=== PATIENT | male | born 1950 | race Hispanic/Latino ===

== ENCOUNTER → 2017-07-14 | Outpatient (CLI) | payer SELFPAY | END | disposition home or self-care (01) | LOC: YCFC.O 08:11 | PROVIDERS: ATTEND Nurse Practitioner Family | DX: N40.0 Benign prostatic hyperplasia without lower urinary tract symptoms (principal); I10 Essential (primary) hypertension ==

== ENCOUNTER → 2018-10-27 | Outpatient (CLI) | payer MEDICARE ==
--- NOTE | 2018-10-27 14:43 | RAD ---
EXAM DESCRIPTION: Chest,2 Views CLINICAL HISTORY: R09.02 COMPARISON: Previous chest x-ray October 19, 2012 TECHNIQUE: PA/lateral FINDINGS: Heart is large with centrally increased pulmonary vascularity. Crowded lung markings in the bases due to incomplete inspiration. Previous study showed patchy infiltrate in the lingula which appears to have improved. No new consolidation to suggest pneumonia. Pleural or extrapleural thickening is prominent on the right, also unchanged. No pneumothorax. Lateral view shows intact sternum and T-spine. IMPRESSION: Large heart without congestive failure. Electronically signed by: Nacho Manuel MD 10/27/2018 2:42 PM [facility]
== END ==
LOC: LAB.O 13:42
PROVIDERS: ATTEND Nurse Practitioner Family
DX: I11.0 Hypertensive heart disease with heart failure (principal); N40.0 Benign prostatic hyperplasia without lower urinary tract symptoms; R09.02 Hypoxemia; Z13.220 Encounter for screening for lipoid disorders

== ENCOUNTER → 2018-11-01 | Outpatient (CLI) | payer MEDICARE ==
--- NOTE | 2018-11-01 16:23 | US ---
EXAM DESCRIPTION: Carotid Duplex: ULTRASOUND. CLINICAL HISTORY: 68 years Male DIZZINESS AND GIDDINESS COMPARISON: None. TECHNIQUE: Transcutaneous scanning utilizing jones-scale and Doppler modes to evaluate the bilateral carotid systems and vertebral arteries. Percentage of diameter of stenosis or no stenosis recorded will be based upon NASCET criteria. FINDINGS: Peak systolic/end diastolic (CM-Sec) CCA Right 78/10 Left 79/19. ICA Right proximal 33/11, mid 110/38. Left proximal 62/24, mid 61/26. Vertebral Right 38/16 Left 37/14. ECA (PS Only) Right 57 left 69. ICA/CCA peak systolic ratio: Right 1.4 Left 0.8 ICA/CCA end diastolic ratio: Right 3.7, 1.3 Left n/a Vertebral arteries: antegrade flow. Comments Comments: Significantly elevated right diastolic ratio but not consistent with other Doppler measurements. Minimal plaque seen bilaterally. IMPRESSION: 1. Doppler evaluation of the bilateral carotid systems and vertebral arteries shows mild degree of stenosis in the right carotid system except for elevated diastolic ratio. Grayscale survey shows no significant stenoses. 2. No significant amount of plaque seen in the carotid arteries bilaterally. Bilateral vertebral arteries showed antegrade-cephalad flow. Electronically signed by: Jared Salazar MD 11/01/2018 4:22 PM [employer]
== END ==
LOC: US 14:34
PROVIDERS: ATTEND Nurse Practitioner Family
DX: R42 Dizziness and giddiness (principal); I65.21 Occlusion and stenosis of right carotid artery

== ENCOUNTER → 2018-12-09 | Outpatient (CLI) | payer MEDICARE | LOC: LAB.O 14:22 | PROVIDERS: ATTEND Nurse Practitioner Family | DX: R73.09 Other abnormal glucose (principal) ==

== ENCOUNTER 2019-04-19 17:17 | Emergency (ER) | payer MEDICARE ==
--- NOTE | 2019-04-19 19:05 | RAD ---
EXAM: XR Left Forearm, 2 Views CLINICAL HISTORY: 69 years old and is Male; FB in arm TECHNIQUE: Frontal and lateral views of the left forearm. COMPARISON: No relevant prior studies available. FINDINGS: Limitations: None. Bones/joints: Small olecranon spur noted. No acute fracture. No dislocation. Soft tissues: Mild dorsal soft tissue swelling. No radiopaque foreign body noted. IMPRESSION: There is soft tissue swelling without acute bony abnormality. No radiopaque foreign body noted. Electronically signed by: Karely Richter MD 04/19/2019 7:02 PM CDT
--- NOTE | 2019-04-19 19:17 | ED.PDOC ---
History of Present Illness - General Chief Complaint: General Stated Complaint: piece of wood under skin Time Seen by Provider: 04/19/19 19:14 Source: patient Exam Limitations: no limitations - History of Present Illness Initial Comments: Lizzette Vines 69 y/o male stated that he was picking wood on his backyard then accidentally come in contact with rough part of wood felt something got underneath the skin of his left forearm. Timing/Duration: just prior to arrival Severity: moderate Location: extremities - left forearm Improving Factors: nothing Worsening Factors: movement Associated Symptoms: other - see hpi Allergies/Adverse Reactions: Allergies NO KNOWN ALLERGY Allergy (Verified 10/19/12 08:36) Home Medications: Ambulatory Orders Amlodipine Besylate [Norvasc] 10 mg PO DAILY 04/19/19 Lisinopril & Hydrochlorothiazi [Lisinopril/Hctz 20-12.5 mg] 1 tab PO DAILY 04/19/19 Review of Systems - Review of Systems Skin: States: see HPI, other - SQ FB All other Systems: Reviewed and Negative, No Change from Baseline Past Medical History (General) - Patient Medical History Hx Stroke: No Hx Cardiac Disorders: No Hx Congestive Heart Failure: No Hx Pacemaker: No Hx Hypertension: Yes Hx Diabetes: No Hx MRSA: No - unknown Surgical History: no surgical history - Vaccination History Hx Tetanus, Diphtheria Vaccination: - unknown Hx Influenza Vaccination: No Hx Pneumococcal Vaccination: No - Social History Hx Tobacco Use: No Hx Alcohol Use: No Hx Substance Use: No Hx Physical Abuse: No Hx Emotional Abuse: No Family Medical History - Family History Father Family History: Unknown Living Status: Unknown Physical Exam - Physical Exam General Appearance: Alert, Comfortable Eyes, Ears, Nose, Throat Exam: normal ENT inspection Neck: supple, normal inspection Cardiovascular/Chest: normal peripheral pulses, regular rate, rhythm, no murmur Respiratory: normal breath sounds Gastrointestinal/Abdominal: non tender, soft, hernia - umbilical reducible Back Exam: normal inspection Extremity: no pedal edema Neurologic: no motor/sensory deficits, alert, oriented x 3 Skin Exam: warm/dry, normal color Skin Problem Location: upper extremities - left forearm Skin Character: other - FB SQ Progress - Progress Progress: 04/19/19 19:19 Vital Signs - 8 hr 04/19/19 18:23 Temperature 98.4 F Pulse Rate [ 70 Right Brachial] Respiratory 20 Rate Blood Pressure 161/103 [Right Arm] O2 Sat by Pulse 93 L Oximetry 04/19/19 19:48 foreign body shown to patient after removal of wood splinter left forearm Procedures - Foreign Body Removal Foreign Body Removal: splinter - wood-left forearm cleanse w/Hibiclens Lidocai/Epi infiltratio skin incision pulled out wood splinter SQ FAT LAYER showed to patient closure with staoles Departure - Departure Clinical Impression: Embedded wood splinter, Foreign body (FB) in soft tissue Time of Disposition: 19:47 Disposition: Discharge to Home or Self Care Condition: Fair Departure Forms: ED Discharge - Pt. Copy, Patient Portal Self Enrollment Instructions: Wound Care (DC) Referrals: Alice Harrison, [employer] APPRENTICE [Primary Care Provider] - 1-2 Weeks Home Medications: Ambulatory Orders Amlodipine Besylate [Norvasc] 10 mg PO DAILY 04/19/19 Lisinopril & Hydrochlorothiazi [Lisinopril/Hctz 20-12.5 mg] 1 tab PO DAILY 04/19/19 Additional Instructions: Removal of macie 01 MAY 2019 [facility] Return to ER as needed
[2019-04-19] MEDS ORDERED: AMOXICILLIN 500 MG CAP PO ONE (19:19)
[2019-04-19] MEDS ORDERED: TETANUS,DIPHTHERIA,PERTUSSIS 1 EA SYG IM ONE (19:19)
[2019-04-19] MEDS ORDERED: LIDOCAINE 1% W/ EPINEPHRINE 20 ML VIAL INJ ONE (19:20)
[2019-04-19] MEDS ORDERED: HYDROcodone 7.5MG/APAP 325MG 1 EA TAB PO ONE (19:48)
[2019-04-19 19:57] VITALS: BP 187/112; TEMP 97.4; O2SAT 93
== END 2019-04-19 19:54 | disposition home or self-care (01) ==
LOC: ER 17:17
DX: S50.852A Superficial foreign body of left forearm, initial encounter (principal); I10 Essential (primary) hypertension; Z23 Encounter for immunization; Z79.899 Other long term (current) drug therapy; W45.8XXA Other foreign body or object entering through skin, initial encounter; Y93.89 Activity, other specified; Y92.007 Garden or yard of unspecified non-institutional (private) residence as the place of occurrence of the external cause

== ENCOUNTER → 2019-10-10 | Outpatient (CLI) | payer MEDICARE, MEDICAID | LOC: LAB.O 14:58 | PROVIDERS: ATTEND Nurse Practitioner | DX: I10 Essential (primary) hypertension (principal); R73.9 Hyperglycemia, unspecified; R79.89 Other specified abnormal findings of blood chemistry; D50.9 Iron deficiency anemia, unspecified ==

== ENCOUNTER → 2019-10-19 | Outpatient (CLI) | payer MEDICARE, MEDICAID | LOC: YCFC.O 11:05 | PROVIDERS: ATTEND Nurse Practitioner | DX: D50.9 Iron deficiency anemia, unspecified (principal); R79.89 Other specified abnormal findings of blood chemistry ==

== ENCOUNTER 2020-03-05 11:43 | Emergency (ER) | payer MEDICARE, MEDICAID ==
--- NOTE | 2020-03-05 11:45 | ED.PDOC ---
History of Present Illness - General Time Seen by Provider: 03/05/20 11:45 Source: patient - History of Present Illness Initial Comments: 69 YO male with PMH of HTN who is sent over from Dr. Rubi's clinic for chief complaint of dizziness and elevated blood pressure. Patient reports ongoing symptoms of dizziness for the past 3 days. Began after doing some work outside in the heat, reports coming and going since then, worse with walking and activit y, feels lightheaded like he may pass out at times and has trouble walking, moderate severity, no medications taken for relief. Reports he is quit working during the day but is still doing some work in the evening around the house when it cools off outside. Reports he ran out of his blood pressure medications about a week ago and has not been taking them. Went to clinic today to get a refill and he was noted to have elevated blood pressures so he was sent over to the ED for further evaluation. Denies any chest pain, dyspnea, abdominal pain, N/V/D, sore throat, cough, fevers, chills. Reports symptoms of nocturia for the past year. Reports mild leg swelling. Denies any history of DC or coronary stents. Denies any alcohol or drug use. For HTN, patient takes lisinoprilHCTZ 20/12.5 and amlodipine 10 mg daily. Allergies/Adverse Reactions: Allergies NO KNOWN ALLERGY Allergy (Verified 10/19/12 08:36) Home Medications: Ambulatory Orders Amlodipine Besylate [Norvasc] 10 mg PO DAILY 04/19/19 Lisinopril & Hydrochlorothiazi [Lisinopril/Hctz 20-12.5 mg] 1 tab PO DAILY 04/19/19 Review of Systems - Review of Systems Review of Systems: 03/05/20 12:04 as per HPI All other Systems: Reviewed and Negative Past Medical History (General) - Patient Medical History Hx Stroke: No Hx Cardiac Disorders: No Hx Congestive Heart Failure: No Hx Pacemaker: No Hx Hypertension: Yes Hx Diabetes: No Hx MRSA: No - unknown - Vaccination History Hx Tetanus, Diphtheria Vaccination: - unknown Hx Influenza Vaccination: No Hx Pneumococcal Vaccination: No - Social History Hx Tobacco Use: No Hx Alcohol Use: No Hx Substance Use: No Hx Physical Abuse: No Hx Emotional Abuse: No Family Medical History - Family History Father Family History: Unknown Living Status: Unknown Physical Exam - Physical Exam General Appearance: Alert, Comfortable, No apparent distress Eye Exam: bilateral normal Ears, Nose, Throat: hearing grossly normal, normal ENT inspection, normal pharynx Neck: non-tender, full range of motion, supple, normal inspection Respiratory: lungs clear, normal breath sounds, no respiratory distress, no accessory muscle use Cardiovascular/Chest: normal peripheral pulses, regular rate, rhythm, no gallop, no JVD, no murmur Peripheral Pulses: radial,right: 2+, radial,left: 2+ Gastrointestinal/Abdominal: normal bowel sounds, non tender, soft, no organomegaly, no pulsatile mass, hernia Back Exam: normal inspection, no CVA tenderness, no vertebral tenderness Extremity: normal range of motion, non-tender, normal capillary refill, pedal edema - Trace BL LE pitting edema to the lower calves Neurologic: safety investigator II-XII nml as tested, no motor/sensory deficits, alert, normal mood/affect, oriented x 3 Skin Exam: normal color, warm/dry Progress - Progress Progress: 03/05/20 12:05 Elevated blood pressure, dizziness -Consider: Hypertensive urgency/emergency, noncompliance, ACS, CHF, vertigo, dehydration, metabolic derangement, UTI, thyroid storm -BP 180s/110s on arrival, remainder of vitals WNL, patient stable, NAD. -Obtain cardiac work-up, blood work, UA -Place PIV, will give labetalol 20 mg IV and reassess 03/05/20 12:39 -Patient reexamined, remained stable. BP is improved to 140s/80s following the labetalol. -Lab work reveals mild hypokalemia (replenished orally). Trop <0.02. There is a mild indirect hyperbilirubinemia. On review of old labs he has had this in the past. As he is without acute abdominal pain or tenderness, highly doubt any emergent etiology is present. Will recommend that he follow-up with his PCP for this. Otherwise labs pretty unremarkable. 03/05/20 13:13 -Patient remains stable, BP remains well controlled. Discussed the patient with Dr. Rubi. Advised of the results and patient progress. Made note of the cardiomegaly and mild vascular congestion seen on chest x-ray and that patient may need outpatient echo. She states that the patient has a year's supply of BP medications available at the pharmacy, he just needs to go pick them up. Discussed this with the patient. Will DC to home in good condition. He will need to follow-up with Dr. Rubi in the next 1 to 2 weeks for repeat evaluation of his blood pressure. ED return warnings discussed at length. Anastacio River MD Billing #[id number] 03/05/20 11:46 IV Care:Saline Lock per Protoc QSHIFT Telemetry .ONCE Sodium Chloride 0.9% (Flush) [Saline Flush Syringe] 10 ml IV PRN PRN 03/05/20 11:47 UA [URINALYSIS] Stat 03/05/20 11:55 HEPATIC FUNCTION PANEL Stat TSH [THYROID STIMULATING HORMONE] Stat 03/05/20 12:00 EKG STAT 03/06/20 09:00 Pulse Ox Daily Laboratory Results - last 24 hr 03/05/20 03/05/20 03/05/20 11:55 11:55 11:55 WBC 6.9 RBC 5.53 Hgb 16.7 Hct 50.3 MCV 90.9 MCH 30.2 MCHC 33.2 RDW 14.0 Plt Count 168 MPV 8.3 Absolute Neuts (auto) 4.10 Absolute Lymphs (auto) 2.00 Absolute Monos (auto) 0.50 Absolute Eos (auto) 0.20 Absolute Basos (auto) 0.00 Neutrophils % 59.2 Lymphocytes % 29.5 Monocytes % 8.0 Eosinophils % 2.8 Basophils % 0.5 Sodium 137 Potassium 3.2 L Chloride 98 L Carbon Dioxide 32 H Anion Gap 10.2 L BUN 25 H Creatinine 1.06 BUN/Creatinine Ratio 23.6 H Random Glucose 123 H Serum Osmolality 279.6 Calcium 9.1 Total Bilirubin Direct Bilirubin Indirect Bilirubin AST ALT Alkaline Phosphatase Troponin I B-Natriuretic Peptide 44.7 Serum Total Protein Albumin 03/05/20 03/05/20 11:55 11:55 WBC RBC Hgb Hct MCV MCH MCHC RDW Plt Count MPV Absolute Neuts (auto) Absolute Lymphs (auto) Absolute Monos (auto) Absolute Eos (auto) Absolute Basos (auto) Neutrophils % Lymphocytes % Monocytes % Eosinophils % Basophils % Sodium Potassium Chloride Carbon Dioxide Anion Gap BUN Creatinine BUN/Creatinine Ratio Random Glucose Serum Osmolality Calcium Total Bilirubin 1.6 H Direct Bilirubin 0.2 Indirect Bilirubin 1.4 H AST 22 ALT 24 Alkaline Phosphatase 54 Troponin I < 0.02 B-Natriuretic Peptide Serum Total Protein 7.5 Albumin 4.0 - EKG/XRAY/CT EKG: Sinus - NSR, HR 65, no ST elevations noted, Q waves in inferior leads likely indicative of prior DC, [place] normal, intervals normal, no prior EKG for c omparison. XRAY: chest - Per my read, moderate cardiomegaly with mild vascular congestion noted. No other acute processes noted Departure - Departure Clinical Impression: Hypertensive urgency, Noncompliance with medication regimen Time of Disposition: 13:11 Disposition: Discharge to Home or Self Care Condition: Good Instructions: High Blood Pressure (DC) Diet: low salt diet Activity: increase activity as tolerated Referrals: Radha Barber FNP [Primary Care Provider] - 1-2 Weeks Home Medications: Ambulatory Orders Amlodipine Besylate [Norvasc] 10 mg PO DAILY 04/19/19 Lisinopril & Hydrochlorothiazi [Lisinopril/Hctz 20-12.5 mg] 1 tab PO DAILY 04/19/19 Additional Instructions: Avoid overexertion or prolonged exposure to the heat. Remain well-hydrated and avoid excessive salt intake. I recommend that you eat less than 2 g of sodium per day. Resume taking your daily blood pressure medications as scheduled as soon as you bead picker your prescriptions. Dr. Rubi states that you have a years supply of prescription at the pharmacy. You will just need to go bead picker the medications. Return to the ED if you develop any concerning symptoms such as chest pain, shortness of breath, weakness, numbness, slurred speech, vision/hearing changes, etc. Follow-up with your primary care physician is recommended in the next 1 to 2 weeks for repeat evaluation and repeat check of your blood pressure.
[2020-03-05] MEDS ORDERED: SODIUM CHLORIDE 0.9% (FLUSH) 10 ML SYG IV PRN (11:46)
[2020-03-05 12:06] VITALS: TEMP 98.3
[2020-03-05] MEDS ORDERED: LABETALOL INJ 5 MG/ML VIAL IV ONE (12:07)
[2020-03-05] MEDS ORDERED: POTASSIUM CHLORIDE 20 MEQ TAB PO ONE (12:37)
--- NOTE | 2020-03-05 12:37 | RAD ---
EXAM DESCRIPTION: Chest,1 View CLINICAL HISTORY: elevated blood pressure FINDINGS/ IMPRESSION: Comparison 10/27/2018 Moderate cardiomegaly. Mild vascular congestion without edema, focal infiltrate or effusion Electronically signed by: Javier Cantu MD 03/05/2020 12:35 PM CDT
[2020-03-05 13:48] VITALS: BP 149/84; O2SAT 94
== END 2020-03-05 13:35 | disposition home or self-care (01) ==
LOC: ER 11:43
DX: I16.0 Hypertensive urgency (principal); R42 Dizziness and giddiness